=== PATIENT | male | born 1935 | race Caucasian/White ===

== ENCOUNTER 2017-10-16 19:17 | Inpatient (IN) | payer MEDICARE ==
[2017-10-16 19:33] LABS: Actual Bicarbonate (HCO3a) 18.3 mEq/L (22-28); Base Excess (BEa) -7.3 mEq/L (-2.0 to +3.0); CO2 Tension 37.6 mmHg (35.0-45.0); pH, Arterial 7.31 (7.35-7.45)
[2017-10-16 19:34] LABS: Hematocrit-ABG 48.7 % (42.0-52.0); Hemoglobin (Hb) 14.8 g/dL (14.0-18.0)
[2017-10-16 19:35] LABS: Analyzer IN Cardio ER; Calcium, Ionized 1.1 mmol/L (1.12-1.30); Puncture Site LRA
[2017-10-16 19:46] LABS: Bilirubin Negative (Negative); Blood, Urine Large (Negative); Clarity CLOUDY (Clear); Glucose, Urine (Dipstick) >=1000 mg/dL (Negative); Leukocyte Negative (Negative); Nitrite Negative (Negative); Protein, Urine (Dipstick) 100 mg/dL (Neg-Trace); Specific Gravity, Urine 1.026 (1.002-1.036); Urobilinogen 0.2 mg/dL (0.2-1.0)
[2017-10-16 19:47] LABS: Bacteria/HPF None Seen HPF (None Seen); Hyaline Casts/LPF 4-6 HYALINE CAST LPF (0-3 Hyaline); Squamous Epithelial 0-3 HPF (0-3); WBC/HPF 0-3 HPF (0-3)
[2017-10-16 19:55] LABS: Amphetamine Not Detected (NotDetected); Barbiturates Screen Not Detected (NotDetected); Benzodiazepine Screen Not Detected (NotDetected); Cocaine Metabolite Screen Not Detected (NotDetected); Medtox Control Line Valid? VALID (VALID); Medtox Reader # READER 1; Methadone Not Detected (NotDetected); Methamphetamine Not Detected (NotDetected); Opiate Screen Not Detected (NotDetected); Oxycodone Screen Not Detected (NotDetected); Phencyclidine (PCP) Not Detected (NotDetected); THC/Cannabinoid Screen Not Detected (NotDetected); Tricyclic Screen Not Detected (NotDetected)
[2017-10-16] MEDS ORDERED: fentaNYL Citrate/PF 2,000 MCG in Sodium Chloride 0.9% 60 ML IV SCH (20:02)
[2017-10-16 20:11] LABS: #Lymphocytes 0.9 thou/uL (1.20-3.40); #Monocytes 1.5 thou/uL (0.11-0.59); #Neutrophils 16.7 thou/uL (1.40-6.50); %Basophils 0.1 % (0.0-1.0); %Eosinophils 0.2 % (0.0-10.0); %Lymphocytes 4.6 % (21.0-51.0); %Monocytes 7.9 % (0.0-10.0); %Neutrophils 87.1 % (42.0-75.0); Hemoglobin 15.4 g/dL (14.0-18.0); Mean Corpuscular HGB CONC 33.5 g/dL (32.0-36.0); Mean Corpuscular Hemoglobin 30.7 pg (27.0-31.0); Mean Corpuscular Volume 91.7 fL (78.0-98.0); Mean Platelet Volume 8.5 fL (7.4-10.4); Platelet Count 141 thou/uL (130-400); RBC Distribution Width 12.1 % (11.5-14.5); Red Blood Cell (RBC) Count 5.01 mill/uL (4.70-6.10); White Blood Cell (WBC) Count 19.2 thou/uL (4.8-10.8)
[2017-10-16 20:24] LABS: INR-International Normal Ratio 1.1; PTT 29.5 SEC (22.9-36.1); Prothrombin Time 14.6 SEC (12.0-14.7)
[2017-10-16 20:35] LABS: ALT (SGPT) 71 U/L (8-55); AST (SGOT) 217 U/L (5-34); Acetaminophen Less than 6.0 mcg/mL (10.0-30.0); Albumin 3.1 g/dL (3.4-4.8); Alcohol Less than 10 mg/dL (Less than 10); Alkaline Phosphatase 176 U/L (40-150); Anion Gap 22 mmol/L (10-20); BUN (Urea Nitrogen) 41 mg/dL (8.4-25.7); Bilirubin, Total 0.8 mg/dL (0.2-1.2); Calc. Creatinine Clearance 0 mL/min (70-130); Calcium 9.1 mg/dL (7.8-10.44); Carbon Dioxide 18 mmol/L (23-31); Chloride 94 mmol/L (98-107); Estimated GFR-MDRD 16; Globulin 4.1 g/dL (2.4-3.5); Lipase 199 U/L (8-78); Magnesium 2.4 mg/dL (1.6-2.6); Phosphorus 6.9 mg/dL (2.3-4.7); Potassium 5.5 mmol/L (3.5-5.1); Protein, Total 7.2 g/dL (5.8-8.1); Salicylate Less than 8.0 mg/dL (15.0-30.0); Sodium 128 mmol/L (136-145)
--- NOTE | 2017-10-16 20:36 | CT ---
CT OF THE BRAIN WITHOUT CONTRAST: 10/16/17 INDICATION: 82-year-old male found face down on the floor with urine, coffee ground vomiting was also noted on th e floor. Black vomit was noted on the patient's face. Patient has an elevated glucose. Recently admit donny for DKA. Patient currently has pinpoint pupils. Patient is intubated. COMPARISON: None. FINDINGS: There is moderate to prominent generalized cerebral artery. There is a remote lacunar infarct involvi ng the right basal ganglia. There is mild to moderate chronic small vessel white matter ischemic grimm ge. There is prominence of the extra-axial space surrounding the brain likely related to the extent o f the atrophy present. Mastoid air cells are clear. the paranasal sinuses are clear. The skull is int act. IMPRESSION: 1. Prominent generalized cerebral atrophy. 2. Remote lacunar infarct involving the right basal ganglia. 3. Mild chronic small vessel white matter ischemic change. POS: [facility]
[2017-10-16 20:38] LABS: Glucose 975 mg/dL (83-110)
[2017-10-16 20:40] LABS: CKMB 71.5 ng/mL (0-6.6); Troponin I 1.062 ng/mL (< 0.028)
[2017-10-16] MEDS ORDERED: Insulin Regular 300 UNITS/3 ML VIAL ONE (20:42)
--- NOTE | 2017-10-16 21:09 | RAD ---
SUPINE PORTABLE FRONTAL CHEST RADIOGRAPH 10/16/17 COMPARISON: None. HISTORY: Found down unresponsive. FINDINGS: There is an endotracheal tube present overlying the tracheal air column terminating at the level of t he clavicular heads. Supine imaging limits assessment for pneumothorax and pleural fluid. No focal co nsolidation or alveolar edema. IMPRESSION: Endotracheal tube in place. POS: [facility]
--- NOTE | 2017-10-16 21:17 | CT ---
CT OF THE FACE WITHOUT CONTRAST: 10/16/17 INDICATION: Found down on the floor face down with vomiting. Concern for facial trauma. FINDINGS: There is prominent cerebral atrophy. There is remote lacunar infarct involving the right frontal lobe . No definite acute fracture is evident. the pterygoid plates are intact. The mandible is intact. TMJ s appear intact. Zygomatic arches are intact. No air fluid level is seen within the paranasal sinuses . The nasal bones intact. Orbital rims and orbital richardson are intact. There is multilevel spondylosis of the cervical spine. There are small calcifications within the soft tissues surrounding the cranioc ervical junction, particularly along the right occipital C1 articular pillar. There is some suspected fragments of bone seen along the medial aspect of the right occipital condyle which may reflect smal l avulsion fractures. Followup MR is recommended. IMPRESSION: 1. No evidence of displaced facial fracture. 2. Bone fragments seen along the medial aspect of the right occipital condyle may reflect small avulsion fractures versus heterotopic ossification within the soft tissues of the craniocervical junc tion. Followup MR may be helpful to exclude the presence of occipital condylar avulsion fracture. POS: [facility]
--- NOTE | 2017-10-16 21:25 | CT ---
NONCONTRAST CT CERVICAL SPINE: 10/16/17 INDICATION: Found down after fall. Concern for neck fracture. FINDINGS: There are small ossific densities seen medial to the occipital condyle which may reflect heterotopic ossification within cervical ligaments of the right occipital C1 articular complex; however, small av ulsion fractures within this location cannot be entirely excluded. No additional suspicious acute oss eous abnormality is evident. There is severe multilevel spondylosis of the cervical spine. The patien t is intubated. Lung apices are clear. There is partial visualization of the gastric catheter. There are prominent vascular calcifications within the neck soft tissues. IMPRESSION: 1. Small ossific densities seen medial to the occipital C1 articular complex is most suspicious for foci of heterotopic ossification within the soft tissues; however, small avulsion fractures of th e right occipital condyle cannot be entirely excluded. Followup MRI of the cervical spine is recommen ded for additional characterization. 2. Severe multilevel spondylosis of the cervical spine. POS: [facility]
--- NOTE | 2017-10-16 22:03 | RAD ---
FRONTAL RADIOGRAPH CHEST: 10/16/17 at 9:12 p.m. COMPARISON: 10/16/17 at 6:56 p.m. HISTORY: Evaluate chest following central line placement. FINDINGS: New left sided vascular catheter present, distal tip overlying the region of the cavoatrial junction, only faintly visualized secondary to technique. Stable endotracheal tube noted. Supine imaging limits assessment for pneumothorax and pleural fluid. IMPRESSION: Left sided vascular catheter appears to terminate in the region of the cavoatrial junction, although assessment is suboptimal secondary to technique. Recommend repeating the chest radiograph to better a ssess the definite tip location. POS: [facility]
[2017-10-16] MEDS ORDERED: Vancomycin HCl 1.25 GM in Sodium Chloride 0.9% 250 ML 250 ML IVPB SCH (23:30)
[2017-10-17 00:16] LABS: Lactic Acid 5.5 mmol/L (0.5-2.2)
[2017-10-17] MEDS ORDERED: DISCONTINUE PREVIOUS NARCOTIC PAIN MEDICATIONS AND BENZODIAZEPINES FS SCH ×2 (00:16→01:51)
[2017-10-17] MEDS ORDERED: Fentanyl BOLUS 250 ML IVPB PRN ×2 (00:16→01:51)
[2017-10-17] MEDS ORDERED: Propofol BOLUS 1,000 MG/100 ML VIAL IV PRN ×2 (00:16→01:51)
[2017-10-17] MEDS ORDERED: fentaNYL Citrate/PF 2,000 MCG in Sodium Chloride 0.9% 60 ML IV SCH ×2 (00:16→01:51)
[2017-10-17] MEDS ORDERED: Propofol 1,000 MG/100 ML VIAL IV PRN ×2 (00:16→01:51)
[2017-10-17] MEDS ORDERED: Lorazepam 2 MG/ML VIAL SLOW IVP PRN ×2 (00:16→01:51)
[2017-10-17] MEDS ORDERED: Potassium Phosphate 9 MMOL in Sodium Chloride 0.9% 100 ML IVPB PRN ×2 (00:18→01:52)
[2017-10-17] MEDS ORDERED: Potassium Chloride 40 MEQ in Premix Bag 1 BAG IVPB PRN ×2 (00:18→01:52)
[2017-10-17] MEDS ORDERED: Magnesium 2 GM/NS 0.9% 100 ML 2 GM in Premix Bag 1 BAG IVPB PRN ×2 (00:18→01:52)
[2017-10-17] MEDS ORDERED: CCU ELECTROLYTE REPLACEMENT PROTOCOL FS PRN ×2 (00:18→01:52)
[2017-10-17] MEDS ORDERED: Potassium Phosphate 15 MMOL in Sodium Chloride 0.9% 250 ML 250 ML IV PRN ×2 (00:18→01:52)
[2017-10-17] MEDS ORDERED: Potassium Phosphate 12 MMOL in Sodium Chloride 0.9% 250 ML 250 ML IV PRN ×2 (00:18→01:52)
[2017-10-17] MEDS ORDERED: Magnesium Oxide 400 MG TAB PO PRN ×4 (00:18→01:52)
[2017-10-17] MEDS ORDERED: Potassium Chloride 20 MEQ TAB PO PRN ×2 (00:18→01:52)
[2017-10-17] MEDS ORDERED: Potassium Chloride 40 MEQ in Sodium Chloride 0.9% 250 ML 250 ML IVPB PRN ×2 (00:18→01:52)
[2017-10-17] MEDS ORDERED: D5 1/2 NS w/20 mEq KCL 1,000 ML IV PRN (00:20)
[2017-10-17] MEDS ORDERED: Dextrose 5% in Water 1,000 ML IV PRN ×2 (00:20→14:47)
[2017-10-17] MEDS ORDERED: NS 0.9% w/ 20 MEQ KCL 1,000 ML/1,000 ML BAG IV PRN ×2 (00:20)
[2017-10-17] MEDS ORDERED: Dextrose 50% Abboject 50 ML SYRINGE SLOW IVP PRN (00:20)
[2017-10-17] MEDS ORDERED: Sodium Chloride 0.9% 1,000 ML IV PRN ×8 (00:20→01:43)
[2017-10-17] MEDS ORDERED: Dextrose 5 %-0.45 % NaCl 1,000 ML IV PRN ×2 (00:20→01:43)
[2017-10-17] MEDS ORDERED: ADD ELECTROLYTE REPLACEMENT SET TO PROFILE FS SCH (00:30)
[2017-10-17 00:44] LABS: Critical Call Chem Troponin I RESULT DECREASING
[2017-10-17 01:27] VITALS: BMI 27.8
[2017-10-17 01:30] LABS: Anion Gap 19 mmol/L (10-20); BUN (Urea Nitrogen) 44 mg/dL (8.4-25.7); Calc. Creatinine Clearance 22 mL/min (70-130); Carbon Dioxide 15 mmol/L (23-31); Chloride 102 mmol/L (98-107); Estimated GFR-MDRD 17; Sodium 131 mmol/L (136-145)
[2017-10-17 01:40] LABS: Glucose 875 mg/dL (83-110)
[2017-10-17] MEDS ORDERED: Ventilator Sedation Protocol 1 EACH FS SCH (01:43)
[2017-10-17] MEDS ORDERED: Acetaminophen 500 MG TAB PO PRN (01:43)
[2017-10-17] MEDS ORDERED: Sodium Chloride 0.9% 1,000 ML IV SCH (01:43)
[2017-10-17] MEDS ORDERED: Ondansetron HCl/PF 4 MG/2 ML Vial IVP PRN (01:43)
[2017-10-17] MEDS ORDERED: Acetaminophen 650 MG Suppository PR PRN (01:43)
[2017-10-17] MEDS ORDERED: NS 0.9% w/ 20 MEQ KCL 1,000 ML IV PRN (01:43)
[2017-10-17] MEDS ORDERED: Ondansetron ODT 4 MG TAB PO PRN (01:43)
[2017-10-17] MEDS ORDERED: CCU Electrolyte Replacement 1 EACH IVPB SCH (01:43)
[2017-10-17 02:26] LABS: Anion Gap 18 mmol/L (10-20); BUN (Urea Nitrogen) 44 mg/dL (8.4-25.7); Calc. Creatinine Clearance 22 mL/min (70-130); Carbon Dioxide 16 mmol/L (23-31); Chloride 104 mmol/L (98-107); Estimated GFR-MDRD 17; Potassium 4.5 mmol/L (3.5-5.1); Sodium 133 mmol/L (136-145)
[2017-10-17 02:40] LABS: Glucose 770 mg/dL (83-110)
[2017-10-17] MEDS: NS 0.9% w/ 20 MEQ KCL 1,000 ML IV PRN ×3 (03:27→08:28)
[2017-10-17 04:03] LABS: Hemoglobin A1c 15.3 % (4.0-6.0)
[2017-10-17 04:07] LABS: ALT (SGPT) 90 U/L (8-55); AST (SGOT) 307 U/L (5-34); Albumin 2.3 g/dL (3.4-4.8); Alkaline Phosphatase 122 U/L (40-150); Anion Gap 17 mmol/L (10-20); BUN (Urea Nitrogen) 44 mg/dL (8.4-25.7); Bilirubin, Total 0.5 mg/dL (0.2-1.2); Calc. Creatinine Clearance 22 mL/min (70-130); Calcium 7.8 mg/dL (7.8-10.44); Carbon Dioxide 16 mmol/L (23-31); Chloride 105 mmol/L (98-107); Estimated GFR-MDRD 17; Globulin 3.1 g/dL (2.4-3.5); Lipase 156 U/L (8-78); Potassium 4.1 mmol/L (3.5-5.1); Protein, Total 5.4 g/dL (5.8-8.1); Sodium 134 mmol/L (136-145)
[2017-10-17 04:10] LABS: Glucose 744 mg/dL (83-110)
[2017-10-17 04:12] LABS: Critical Call Chem Troponin I RESULT DECREASING; Troponin I 0.977 ng/mL (< 0.028)
[2017-10-17 04:33] LABS: Band 28 % (5-11); CK (CPK) 19760 U/L (30-200); Hemoglobin 12.8 g/dL (14.0-18.0); Lymphocytes 8 % (21-51); MDiff Complete? YES; Mean Corpuscular HGB CONC 33.8 g/dL (32.0-36.0); Mean Corpuscular Hemoglobin 30.8 pg (27.0-31.0); Mean Corpuscular Volume 91.1 fL (78.0-98.0); Mean Platelet Volume 8.4 fL (7.4-10.4); Monocytes 2 % (0-10); Neutrophil 62 % (42-75); PLT Morphology Comment Appears Decreased; Platelet Count 112 thou/uL (130-400); RBC Distribution Width 12.1 % (11.5-14.5); RBC Morphology Normal; Red Blood Cell (RBC) Count 4.15 mill/uL (4.70-6.10); White Blood Cell (WBC) Count 14.9 thou/uL (4.8-10.8)
--- NOTE | 2017-10-17 04:55 | HP ---
DATE OF ADMISSION: 10/16/2017 PRIMARY CARE PHYSICIAN: Unknown. CHIEF COMPLAINT: Found down. HISTORY OF PRESENT ILLNESS: This is an 82-year-old male who presents to [facility] Emergency Department after apparently being found down by his daughter in his trailer home. The history is obtained after review of electronic medical record as well as reports from the emergency room attending physician, as patient is on current mechanical ventilation and unable to pr ovide any history. No family members are available currently to corroborate story. Patient was appa rently found down as stated previously, unresponsive, at which point EMS personnel were called. Ariela ent was noted with hyperglycemia with glucoses greater than 500 and in the field. Patient was unresp onsive as stated previously with blood on the floor coming from his nose. At which point, patient wa s intubated in the field and brought to the emergency room. Initial evaluation including CT of the b rain showed no acute intracranial process with multiple chronic findings. Screening metabolic survey showed multitude of abnormalities including acute kidney injury as well as lactic acidosis and igor rn for diabetic ketoacidosis with a glucose of 975. Patient was also noted with elevated troponin I and lipase. Patient was initiated on insulin infusion and continued on mechanical ventilation. Ariela ent also received intravenous normal saline as well as vancomycin. Patient also received aspirin 325 mg and approximately 4 liters of normal saline. Patient was transferred to the Critical Care Unit f or further evaluation. Patient was last noted normal by his daughter approximately 2030 p.m. on 10/07. Patient resides on the property with his daughter, living in a mobile home. Patient deb londono lost his in 08/2017 and has been struggling with depression. Patient apparently has stopped taking insulin within the last year. Patient apparently had been living independently and generally caring for himself. PAST MEDICAL HISTORY: 1. Diabetes mellitus, type 2, poor control. 2. History of myocardial infarction. 3. Hyperlipidemia. 4. Hypertension. 5. Prostate cancer, status post radiation therapy. PAST SURGICAL HISTORY: 1. Status post left ankle repair. 2. Status post lumbar fusion. 3. Status post lens implant due to cataract removal. CURRENT MEDICATIONS: Based on previous history and will need to be corroborated with family. 1. Oxaprozin 600 mg p.o. b.i.d. 2. Iron 150 mg b.i.d. 3. Lasix 20 mg p.o. daily. 4. Duloxetine 30 mg p.o. b.i.d. 5. Oxycodone 5 mg p.o. b.i.d. 6. Nifedipine 30 mg p.o. daily. 7. Ambien 10 mg p.o. at bedtime. ALLERGIES: No known drug allergies. FAMILY HISTORY: No inheritable diseases per family report. SOCIAL HISTORY: Resides in [place], [place] living in a mobile home. No alcohol, tobacco, or illici t drug use. Previously functional of all activities of daily living. Recently in 08/2017. REVIEW OF SYSTEMS: Unobtainable as patient is on mechanical ventilation. PHYSICAL EXAMINATION: VITAL SIGNS: Currently blood pressure 128/72, pulse 98, respiratory rate 29, temperature 96.3 degree s Fahrenheit, O2 saturation is 100% on 50% FiO2 by SIMV. GENERAL APPEARANCE: This is an 82-year-old male, sedate with pinpoint pupils on mechanical ventilation. HEENT: Pinpoint pupils are minimally reactive to light. Bilateral conjunctival injection. Nares wi th dried blood. OP is clear with ET tube in place. Nasogastric tube in place. Scalp with large con tusion and abrasion above the right eye on the forehead region. NECK: Supple, no adenopathy, no thyromegaly, no carotid bruits, no JVD appreciated. CHEST: Lungs are clear to auscultation bilaterally. CARDIOVASCULAR: S1, S2 with tachycardia. No murmur, rub, or gallop appreciated. ABDOMEN: Rounded, soft, nontender, nondistended. Bowel sounds are positive in all four quadrants. There is no palpable mass. No rebound or guarding noted. EXTREMITIES: Edema to bilateral lower extremities from mid hanks to the ankles. Pulses are diminishe d bilaterally at the dorsalis pedis, posterior tibial arteries. Capillary refill less than 2 seconds . NEUROLOGIC: Pinpoint pupils minimally reactive to light. No response to painful stimuli on current sedation with mechanical ventilation. GENITOURINARY: Benavides catheter with scant urine, dark smitha, and cloudy. SKIN: Shows multiple abrasions including right forehead and facial region. Contusions of the upper extremities as well as knees and toes bilaterally. Diffuse erythema of the right thigh and knee leah on. Groin with multiple areas of erythema and excoriations. PERTINENT LABORATORY DATA AND X-RAY FINDINGS: Sodium 128, potassium 5.5, chloride 94, CO2 of 18, ani on gap of 22, BUN 41, creatinine 3.66. Estimated GFR of 16, glucose 975. Lactic acid level ranged b etween 5.5 to 6.8, calcium 9.1, phosphorus 6.9, magnesium 2.4. AST 217, ALT of 71, alkaline phosphat ase 176, troponin I ranged between 0.990 to 1.062. [place] [address]. BNP 525. Albumin 3.1, lip ase 199. CBC showed a white blood cell count 19.2, hemoglobin 15, hematocrit 46, platelet count 141 with 87% neutrophilia. PT 14.6, INR 1.1, PTT 29.5. ABG showed a pH of 7.31, pCO2 of 37.6, pO2 of 59 6, bicarbonate 18.3, O2 saturation 100% on 100% FiO2. Urinalysis showed greater than 1000 glucose wi th large blood. Urine drug screen dated 10/16/2017 negative. Plasma alcohol level less than 10. Be ta hydroxybutyrate level 0.72. CT of the cervical spine dated 10/16/2017 showed severe multilevel sp ondylosis of the cervical spine without acute process. Portable chest x-ray dated 10/16/2017 showed endotracheal tube in appropriate positioning. No acute infiltrate identified. CT of the brain witho ut contrast dated 10/16/2017 showed chronic changes in bilateral cerebral hemispheres without acute p rocess. CT of the facial bones dated 10/16/2017 showed no acute fracture. Questionable bone fragmen t on the medial aspect of the right occipital condyle with questionable reflection of small avulsion fracture versus heterotopic ossification within the soft tissues. EKG dated 10/16/2017 by my interpr etation shows sinus tachycardia with heart rates in the low 100s. Attenuated R waves noted in the pr ecordial leads. Left axis deviation. Left anterior fascicular block noted. No acute ST-T wave grimm ges appreciated. ASSESSMENT AND PLAN: 1. Diabetic ketoacidosis. The patient will be admitted to the critical care unit. We will continue insulin infusion per diabetic ketoacidosis protocol. Continue aggressive IV fluid hydration and mon itor serial glucose. Likely multifactorial presentation including noncompliance with home medication regimen in conjunction with possible underlying sepsis. 2. Sepsis. Exact etiology and source unknown. We will continue broad-spectrum IV antibiotic covera ge to include vancomycin and Zosyn. Blood and urine cultures pending. We will continue aggressive g eneral supportive measures in the critical care unit. No current need for pressor agents. Serial la ctic acid assessment per protocol. We will consult Pulmonology, Critical Care Service in the a.m. 3. Acute hypoxic respiratory failure. We will continue synchronized intermittent mechanical ventila tion for mechanical ventilation. We will consult Pulmonology, Critical Care Service in the a.m. We will continue to monitor clinical response and repeat portable chest x-ray and ABG in the a.m. Likel y multifactorial respiratory failure given patient's multiple comorbid status. 4. Acute kidney injury. Suspect multifactorial including acute tubular necrosis and severe dehydrat ion. Also, component of diabetic ketoacidosis, we will continue aggressive IV fluid hydration and av oid nephrotoxic agents and contrast media. Repeat creatinine in the a.m. 5. Hyperkalemia. We will continue IV fluid hydration and monitor potassium response. 6. Hyponatremia. Suspect secondary to dehydration and hyperglycemia. Continue IV fluid hydration a nd repeat sodium level in the a.m. 7. Acute toxic metabolic encephalopathy. Multifactorial as stated previously. We will continue agg ressive metabolic and respiratory support. Continue to monitor for clinical response and improvement neurologically. Consider Neurology consult. 8. Elevated troponin I. Suspect demand ischemia in the context of presentation as stated previously . Consider Cardiology consultation. Continue cardiac biomarkers trending. Check 2D transthoracic e chocardiogram. 9. Diabetes mellitus, type 2, uncontrolled. Continue treatment as outlined in #1. Check A1c level in the a.m. 10. Prophylaxis. Sequential compression devices while in bed. Pepcid 20 mg IV q.12 hours. 11. Code status is FULL. Surrogate medical decision maker is the patient's daughter. Total critical care time is 45 minutes.
[2017-10-17 05:13] LABS: Anion Gap 13 mmol/L (10-20); BUN (Urea Nitrogen) 45 mg/dL (8.4-25.7); Calc. Creatinine Clearance 22 mL/min (70-130); Calcium 7.7 mg/dL (7.8-10.44); Carbon Dioxide 19 mmol/L (23-31); Chloride 107 mmol/L (98-107); Estimated GFR-MDRD 17; Potassium 4.1 mmol/L (3.5-5.1); Sodium 135 mmol/L (136-145)
[2017-10-17 05:15] LABS: Glucose 656 mg/dL (83-110)
[2017-10-17] MEDS: Piperacillin/Tazobactam 2.25 GM in Sodium Chloride 0.9% 100 ML IVPB SCH ×3 (06:11→18:20)
--- NOTE | 2017-10-17 07:02 | ULT ---
RIGHT LOWER EXTREMITY VENOUS DOPPLER ULTRASOUND: 10/16/2017 HISTORY: Evaluate for DVT. Right leg injury. Fall. Unresponsive. Pain. Redness. COMPARISON: None. TECHNIQUE: Multiplanar santos-scale sonographic imaging of the venous structures of the right lower extremity obta ined with color-flow and spectral analysis. FINDINGS/IMPRESSION: The right common femoral vein, greater saphenous vein, profunda femoral vein, femoral vein, popliteal vein, and posterior tibial vein are patent. There is normal blood flow, augmentation, and compressi on within the deep venous system of the right lower extremity, with no evidence for right lower extre mity DVT. POS: [facility]
[2017-10-17 07:17] LABS: Troponin I 1.029 ng/mL (< 0.028)
[2017-10-17 07:57] LABS: Actual Bicarbonate (HCO3a) 15.8 mEq/L (22-28); Base Excess (BEa) -8.4 mEq/L (-2.0 to +3.0); Calcium, Ionized 1.1 mmol/L (1.12-1.30); O2 Tension (PaO2) 212.5 mmHg (> 60.0); Puncture Site RRA; pH, Arterial 7.35 (7.35-7.45)
--- NOTE | 2017-10-17 08:24 | CON ---
DATE OF CONSULTATION: 10/17/2017 Forty-five minutes critical care time. REASON FOR CONSULTATION: Acute respiratory failure. HISTORY OF PRESENT ILLNESS: The information I have is obtained by reviewing Dr. Melissa's history and p zohaib. Family is not immediately available for a conversation. The patient is an 82-year-old who was found down at home by his daughter yesterday. EMS was called. The patient was found to be severely hyperglycemic. He had multiple sores over his body, indicating that he had been down for quite some time. PAST MEDICAL HISTORY: 1. Diabetes mellitus type 2. 2. Myocardial infarction. 3. Hyperlipidemia. 4. Hypertension. 5. Prostate cancer requiring radiation therapy. PAST SURGICAL HISTORY: 1. Left ankle repair. 2. Lumbar fusion. 3. Lens implant after cataract removal. MEDICATIONS PRIOR TO ADMISSION: Oxaprozin 600 mg b.i.d., iron 150 mg b.i.d., Lasix 20 mg daily, dulo xetine 30 mg daily, oxycodone 5 mg b.i.d., nifedipine 30 mg daily, Ambien 10 mg at bedtime - not know n what he is taking for his diabetes mellitus. ALLERGIES: None. FAMILY MEDICAL HISTORY: Unremarkable. SOCIAL HISTORY: Lives in [place]. Apparently does not smoke, does not drink, does not use illicit drugs. REVIEW OF SYSTEMS: Cannot be obtained. The patient is currently on mechanical ventilation. PHYSICAL EXAMINATION: VITAL SIGNS: Temperature 96.8, pulse 75, blood pressure 105/65, O2 saturation 99%, 24-hour intake 15 10, output 120. GENERAL: He appears disheveled and unkempt. SKIN: Remarkable for breakdown over his left foot and ulcer over his left knee. He has diffuse burton chial bruising over his right leg from top to bottom. HEENT: Pupils are 2 mm, not reactive. Sclerae are anicteric. Oropharynx, endotracheal tube in plac e. NECK: He has a left IJ line in place. LUNGS: Clear to auscultation without wheezing. CARDIAC: S1, S2 regular. No audible murmur. ABDOMEN: Soft, no hepatosplenomegaly. EXTREMITIES: No clubbing or cyanosis. He has the skin changes noted above. LABORATORY DATA: White blood cell count 14.9, hematocrit 37.9, platelet count 112. INR 1.1, PTT 29. 5, pH 7.35, pCO2 of 29, pO2 212. That is on SIMV rate 18, tidal volume 500, PEEP 5, pressure support 10, FiO2 40%. Sodium 135, potassium 4.1, chloride 107, CO2 19, BUN 45, creatinine 3.5, glucose 434. Troponin 1.02. CPK 19,760, AST 307, ALT 90. Lipase 156. Lactate was 7.7. Urinalysis showed gluc osuria and proteinuria. Tox screen was positive for beta hydroxybutyrate. ASSESSMENT: 1. Profound hyperglycemia, probably more hyperosmolar nonketotic hyperglycemia than anything else. 2. Profound volume depletion. 3. Acute respiratory failure - patient mainly intubated for nonresponsiveness. 4. Question of underlying sepsis, although I think most of what we are seeing is related to rhabdomy olysis. 5. Rhabdomyolysis. 6. Elderly age. 7. Acute renal failure likely secondary to dehydration and rhabdomyolysis. RECOMMENDATIONS: 1. Continue mechanical ventilation at present settings. 2. Minimize sedation. 3. Consider Neurology consultation if the patient's mental status is not improving in the next 24 ho urs. So far, head CT appears to be negative. 4. Follow serial CPK. 5. Insulin drip. 6. Update family when they become available. 7. I will see if Adult Protective Services have been notified.
[2017-10-17] MEDS: Famotidine/PF 20 mg/2ml Vial SLOW IVP SCH (08:44)
--- NOTE | 2017-10-17 08:58 | RAD ---
SINGLE VIEW CHEST: Date: 10/17/17 COMPARISON: 10/16/17. HISTORY: Central line placement. Respiratory failure. Ventilated patient. FINDINGS: Single view of the chest shows a normal sized cardiomediastinal silhouette. An endotracheal tube is s een with its tip between the clavicles. A central venous catheter is seen with its tip right at the m idline. This takes a slightly unusual course and is unchanged compared to the prior examination. Ther e is no evidence of consolidation, mass, or pleural effusion. IMPRESSION: 1. Stable exam. 2. There is slightly unusual course of the central venous catheter. This could represent a central v enous catheter within an arterial structure or within a left-sided IVC. POS: [facility]
[2017-10-17] MEDS ORDERED: Prevnar 13-Val Conj/PF 0.5 ML SYRINGE IM ONE (09:00)
[2017-10-17] MEDS: D5 1/2 NS w/20 mEq KCL 1,000 ML IV PRN ×2 (10:42→14:39)
[2017-10-17 12:36] LABS: Chloride 111 mmol/L (98-107); Potassium 4.2 mmol/L (3.5-5.1); Sodium 141 mmol/L (136-145)
[2017-10-17 12:45] LABS: Anion Gap 17 mmol/L (10-20); BUN (Urea Nitrogen) 46 mg/dL (8.4-25.7); Calc. Creatinine Clearance 22 mL/min (70-130); Carbon Dioxide 17 mmol/L (23-31); Estimated GFR-MDRD 17; Glucose 214 mg/dL (83-110)
[2017-10-17] MEDS ORDERED: Dextrose 50% Abboject 50 ML SYRINGE IVP PRN (14:47)
--- NOTE | 2017-10-17 18:33 | PDOC.EVN ---
Event Note - Event Note Event Note: Chart reviewed, patient seen. Will follow.
[2017-10-17] MEDS: Insulin Regular 300 UNITS/3 ML VIAL SC PRN (20:04)
[2017-10-18] MEDS: Insulin Regular 300 UNITS/3 ML VIAL SC PRN ×2 (00:38→05:29)
[2017-10-18] MEDS: D5 1/2 NS w/20 mEq KCL 1,000 ML IV PRN ×2 (00:46→05:31)
[2017-10-18] MEDS ORDERED: Vancomycin HCl 750 MG in Sodium Chloride 0.9% 250 ML 250 ML IVPB SCH (01:00)
[2017-10-18] MEDS: Piperacillin/Tazobactam 2.25 GM in Sodium Chloride 0.9% 100 ML IVPB SCH ×2 (01:09→05:24)
[2017-10-18 05:45] LABS: Lactic Acid 3.4 mmol/L (0.5-2.2)
[2017-10-18 05:52] LABS: ALT (SGPT) 197 U/L (8-55); AST (SGOT) 464 U/L (5-34); Albumin 2.1 g/dL (3.4-4.8); Alkaline Phosphatase 102 U/L (40-150); Anion Gap 17 mmol/L (10-20); BUN (Urea Nitrogen) 57 mg/dL (8.4-25.7); Bilirubin, Total 0.5 mg/dL (0.2-1.2); Calc. Creatinine Clearance 17 mL/min (70-130); Calcium 7.3 mg/dL (7.8-10.44); Carbon Dioxide 15 mmol/L (23-31); Chloride 110 mmol/L (98-107); Estimated GFR-MDRD 13; Globulin 2.8 g/dL (2.4-3.5); Glucose 415 mg/dL (83-110); Lipase 29 U/L (8-78); Potassium 6.7 mmol/L (3.5-5.1); Protein, Total 4.9 g/dL (5.8-8.1); Sodium 135 mmol/L (136-145)
[2017-10-18 05:53] LABS: Hemoglobin 11.8 g/dL (14.0-18.0); Mean Corpuscular HGB CONC 33.4 g/dL (32.0-36.0); Mean Corpuscular Hemoglobin 30.9 pg (27.0-31.0); Mean Corpuscular Volume 92.4 fL (78.0-98.0); Mean Platelet Volume 9.6 fL (7.4-10.4); Platelet Count 104 thou/uL (130-400); RBC Distribution Width 12.5 % (11.5-14.5); Red Blood Cell (RBC) Count 3.83 mill/uL (4.70-6.10); White Blood Cell (WBC) Count 13.2 thou/uL (4.8-10.8)
[2017-10-18 05:54] LABS: Band 45 % (5-11); Lymphocytes 6 % (21-51); MDiff Complete? YES; Metamyelocyte 1 % (0-0); Monocytes 1 % (0-10); Neutrophil 47 % (42-75); PLT Morphology Comment Appears Decreased
[2017-10-18 06:14] LABS: CK (CPK) 10974 U/L (30-200)
[2017-10-18] MEDS ORDERED: Sodium Chloride 0.45% 1,000 ML IV SCH (06:30)
[2017-10-18 07:44] LABS: Actual Bicarbonate (HCO3a) 14.3 mEq/L (22-28); CO2 Tension 30.5 mmHg (35.0-45.0); Calcium, Ionized 1.1 mmol/L (1.12-1.30); Hemoglobin (Hb) 12.3 g/dL (14.0-18.0); O2 Tension (PaO2) 143.5 mmHg (> 60.0); pH, Arterial 7.29 (7.35-7.45)
[2017-10-18 07:45] LABS: ALV-art Gradient 103.575 (0-20); Puncture Site RBA
[2017-10-18 08:43] LABS: Anion Gap 16 mmol/L (10-20); BUN (Urea Nitrogen) 60 mg/dL (8.4-25.7); Calc. Creatinine Clearance 17 mL/min (70-130); Calcium 7.5 mg/dL (7.8-10.44); Carbon Dioxide 15 mmol/L (23-31); Chloride 111 mmol/L (98-107); Estimated GFR-MDRD 12; Glucose 372 mg/dL (83-110); Potassium 6.5 mmol/L (3.5-5.1); Sodium 135 mmol/L (136-145)
--- NOTE | 2017-10-18 09:10 | RAD ---
SEMIUPRIGHT PORTABLE CHEST 1 VIEW: HISTORY: An 82-year-old male with a history of respiratory failure. COMPARISON: 10/17/17. FINDINGS: Life support tubes in place. Monitor leads overlie the chest. Minimal increased linear and intersti tial markings bilaterally. No confluent pneumonia, overt edema, or pleural effusion. IMPRESSION: Stable chest. No acute intrathoracic disease. Continue short-term followup for clearing or stabilit y. POS: [facility]
[2017-10-18] MEDS ORDERED: Dextrose 50% Abboject 50 ML SYRINGE SLOW IVP SCH (09:21)
[2017-10-18] MEDS ORDERED: Albuterol Sulfate 1.25 MG/3 ML NEB NEB SCH (09:30)
[2017-10-18] MEDS ORDERED: Insulin Regular 300 UNITS/3 ML VIAL IVP SCH (09:30)
[2017-10-18] MEDS: Famotidine/PF 20 mg/2ml Vial SLOW IVP SCH (11:01)
--- NOTE | 2017-10-18 11:55 | PRG ---
DATE OF SERVICE: 10/18/2017. Forty minutes of critical care time. SUBJECTIVE: The patient remains on mechanical ventilation. He does not respond to deep painful stim jose r, but he does overbreathe the vent. I cannot elicit a gag reflex. PHYSICAL EXAMINATION: VITAL SIGNS: Temperature is 97.9, pulse 88, blood pressure 107/55. He is currently on no vasopresso rs. Total intake for the last 24 hours is 6646. Urine output about 85. HEENT: Unremarkable. His pupils are about 2 mm and nonreactive. Sclerae anicteric. Oropharynx charles ar. NECK: No JVD. LUNGS: Clear anteriorly. CARDIOVASCULAR: S1 and S2 regular. ABDOMEN: Soft, nontender. EXTREMITIES: Right lower extremity petechia. LABORATORY DATA: Sodium 135, potassium 6.5, chloride 111, CO2 15, BUN 60, creatinine 4.5, glucose 37 2. White blood cell count 13.2, hematocrit 35.4, platelet count 104,000. PH 7.29, pCO2 of 30, PO2 o f 143. ASSESSMENT: 1. 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 2. Severe rhabdomyolysis. 3. Acute renal failure. 4. Hyperkalemia. 5. Diabetes mellitus type 2 with uncontrolled blood sugars. 6. Acute respiratory failure requiring mechanical ventilation. PLAN: I spoke to the daughter at bedside. I think the patient's prognosis for recovery is poor. I would advocate withdrawal of care as soon as they are comfortable with it. The more aggressive cours e would be to start on hemodialysis and try to ____ this out, although I do not think the patient wou ld be speaking with the family. They have made him DNR.
--- NOTE | 2017-10-18 12:03 | PDOC.PN ---
- Subjective Encounter Start Date: 10/18/17 Encounter Start Time: 08:10 -: non-verbal Pt seen for followup re: acute respiratory failure. Intubated, unable to complete ROS. - Objective Resuscitation Status: Resuscitation Status DNR:Do Not Resuscitate MAR Reviewed: Yes Vital Signs & Weight: Vital Signs (12 hours) Temp Pulse Resp 10/18/17 10:49 106 H 10/18/17 07:23 88 10/18/17 06:00 18 10/18/17 04:00 97.9 F 18 10/18/17 02:00 18 Weight Admit Weight 205 lb 7.533 oz Weight 205 lb 7.533 oz Most Recent Monitor Data Heart Rate from ECG 88 NIBP 107/55 NIBP BP-Mean 78 Respiration from ECG 18 SpO2 100 I&O: 10/17/17 10/18/17 10/19/17 06:59 06:59 06:59 Intake Total 1510.1 6646 Output Total 120 335 Balance 1390.1 6311 Result Diagrams: 10/18/17 05:26 10/18/17 08:11 Additional Labs: Accuchecks 10/18/17 10/18/17 10/17/17 05:30 00:39 15:51 POC Glucose 402 H 289 H 129 H 10/17/17 10/17/17 10/17/17 14:38 13:37 12:37 POC Glucose 119 H 137 H 261 H EKG Reviewed by me: Yes (Tele: NSR) Phys Exam - Physical Examination Intubated HEENT: moist MMs, sclera anicteric bruises, ETT Respiratory: no wheezing, no rales, no rhonchi, clear to auscultation bilateral Cardiovascular: RRR, no rub S1, S2 Gastrointestinal: soft, non-tender, no distention, positive bowel sounds No spontaneous movements of any of four extremities Deviation from normal: Unable to assess mood, affect or orientation to person, place or time Dx/Plan (1) Acute respiratory failure Code(s): J96.00 - ACUTE RESPIRATORY FAILURE, UNSP W HYPOXIA OR HYPERCAPNIA Status: Acute Comment: Intubated and mechanically ventilated, in CCU (2) Hyperkalemia Code(s): E87.5 - HYPERKALEMIA Status: Acute Comment: administer insulin (+ dextrose), beta agonist nebs (3) PORFIRIO (acute kidney injury) Code(s): N17.9 - ACUTE KIDNEY FAILURE, UNSPECIFIED Status: Acute Comment: Likely due to rhabdomyolysis, continue IV fluids (4) Rhabdomyolysis Code(s): M62.82 - RHABDOMYOLYSIS Status: Acute Comment: continue IV fluids (5) Elevated troponin I level Code(s): R74.8 - ABNORMAL LEVELS OF OTHER SERUM ENZYMES Status: Acute Comment: likely due to demand ischemia (6) Transaminitis Code(s): R74.0 - NONSPEC ELEV OF LEVELS OF TRANSAMNS & LACTIC ACID DEHYDRGNSE Status: Acute Comment: likely of muscle origin - Plan * . Prognosis guarded Review of Systems - Medications/Allergies Allergies/Adverse Reactions: Allergies Allergy/AdvReac Type Severity Reaction Status Date / Time No Known Allergies Allergy Verified 10/17/17 01:22 Medications: Current Medications Morphine Sulfate (Morphine Sulfate) 4 mg SLOW IVP Q15MIN PRN PRN Reason: Dyspnea
--- NOTE | 2017-10-18 12:11 | PDOC.EVN ---
Event Note - Event Note Event Note: 8:30-8:48 AM. Advance Care Planning: Discussed with patient's daughter and MPOA Laura dorsey. Updated her re: worsening renal failure, hyperkalemia and elevated troponins. Patient's prognosis appears poor. Ms. dorsey is waiting for other family members to come to the hospital. Discussed code status. Patient's code status changed to DNR.
[2017-10-18 12:43] VITALS: BP 106/58; TEMP 97.7
[2017-10-18] MEDS ORDERED: Morphine 4 MG/ML VIAL SLOW IVP PRN (15:00)
--- NOTE | 2017-10-19 23:50 | DIS ---
SUMMARY PRIMARY CARE PROVIDER: Dr. Mohsen Harris. DATE OF ADMISSION: 10/16/2017 Patient on 10/18/2017. DISCHARGE DIAGNOSES: 1. Acute kidney injury. 2. Diabetic ketoacidosis. 3. Rhabdomyolysis. 4. Hyperkalemia. 5. Acute respiratory failure requiring mechanical ventilation. 6. Anoxic brain injury. HOSPITAL COURSE: Mr. Soliman was admitted to [facility] on 10/16/2017 for diabe tic ketoacidosis, sepsis, acute hypoxic respiratory failure, acute kidney injury, hyperkalemia, and h yponatremia. He also had elevated troponin I. Please refer to Dr. Melissa's history and physical note dated 10/17/2017 for further details. He was seen by Pulmonary Critical Care Medicine. He continued to be on the ventilator and had probable anoxic brain injury. His renal function was also worsening . After discussion with family, patient was initially made DNR and subsequently family wanted comfor t measures only. He was extubated on 10/18/2017 and the same day.
--- NOTE | 2017-10-30 11:08 | PQF ---
[employer] Crystal Reports Winform ViewerLOOFS, LEON MELISSAWILMER DO [id number] [facility] [place] [id number] CLINICAL DOCUMENTATION CLARIFICATION FORM: POST DISCHARGE Addendum to original discharge summary date: ____ Late entry note date: __ DATE: ATTN: Please exercise your independent, professional judgment in responding to the clarification form. Clinical indicators are provided on the bottom of this form for your review Please check appropriate box(es): [ ] Sepsis due to: (Pna, UTI, gangrenous gall bladder, etc.) Due to: [ ] Device (please specify) [ ] Implant [ ] Graft [ ] Infusion [ ] SIRS due to non-infectious process (please specify etiology) [ ] with organ dysfunction [ ] without organ dysfunction [ ] Severe sepsis with acute organ dysfunction of: (Examples: respiratory failure, encephalopathy, acute kidney failure, other) [ ] Septic Shock [ ] Localized infection without sepsis [ ] Other diagnosis [ ] Unable to determine In addition, please specify: Present on Admission (POA): [ ] Yes [ ] No [ ] Unable to determine Dr Melissa, in the progress note on 10/17 it is stated that "questionable underlying sepsis, although I think most of what we are seeing is related to rhabdomylosis". Can you please confirm sepsis dx. Thank you (This form is maintained as a part of the permanent medical record) 2015 [employer] All Rights Reserved [email or web address] [phone] [email or web address]
== END 2017-10-18 18:50 | disposition expired | DRG 208 ==
LOC: ERS 19:17 → CCU 21:45 → T4-A 10-18 12:20
PROVIDERS: ADMIT Family Medicine; ATTEND Family Medicine
PROC: 5A1935Z Respiratory Ventilation, Less than 24 Consecutive Hours (ICD-10-PCS; principal; 2017-10-16)
PROC: 02HV33Z Insertion of Infusion Device into Superior Vena Cava, Percutaneous Approach (ICD-10-PCS; 2017-10-16)
DX: J96.01 Acute respiratory failure with hypoxia (principal); G93.41 Metabolic encephalopathy; E11.10 Type 2 diabetes mellitus with ketoacidosis without coma; M62.82 Rhabdomyolysis; E87.1 Hypo-osmolality and hyponatremia; G93.1 Anoxic brain damage, not elsewhere classified; E87.5 Hyperkalemia; E86.0 Dehydration; Z51.5 Encounter for palliative care; I25.2 Old myocardial infarction; E78.5 Hyperlipidemia, unspecified; Z85.46 Personal history of malignant neoplasm of prostate; R74.8 Abnormal levels of other serum enzymes; E86.9 Volume depletion, unspecified; I10 Essential (primary) hypertension; Z66 Do not resuscitate
CPT/HCPCS: 36415; 36416; 36556; 51702; 70450; 70486; 71045; 72125; 80053; 80306; 80307; 81003; 81015; 82010; 82274; 82550; 82553; 82805; 83036; 83605; 83690; 83735; 83880; 84100; 84484; 85007; 85025; 85027; 85610; 85730; 86850; 86900; 86901; 87040; 87086; 93005; 93306; 94002; 94003; 94760; 96365; 96366; 99292; A4216; J1815; J2060; J2270; J2543; J3010; J3370; J7050; S0028